=== PATIENT | male | born 1960 | race Caucasian/White ===

== ENCOUNTER 2016-05-28 09:52 | Emergency (ER) | payer MEDICAID ==
[~2016-05-28] VITALS: Ht 177.8 cm; Wt 105.9 kg
[~2016-05-28 09:52] MED LIST: AMIT10 PO; CYMB30CA PO; GLIP5 PO; JANU50TA9 PO; LYRI150C PO; METO50TA PO; PERC5TAB12 PO; PROT40TA PO; TRIA50 PO
[2016-05-28 09:59] VITALS: BP 143/79; PULSE 63; RESP 16; TEMP 98.5; O2SAT 99
[2016-05-28] MEDS ORDERED: MORPHINE SULFATE 8 MG/ML INJ IV PUSH ONE (10:30)
[2016-05-28] MEDS ORDERED: ONDANSETRON HCL 4 MG/2 ML VIAL IV PUSH ONE (10:30)
[2016-05-28] MEDS ORDERED: ACTO15TA11 PO (10:32)
[2016-05-28] MEDS ORDERED: TRIA1CAP PO (10:32)
[2016-05-28] MEDS ORDERED: AMIT25TA9 PO (10:32)
[2016-05-28] MEDS ORDERED: JANU50TA4 PO (10:32)
[2016-05-28] MEDS ORDERED: LYRI150C PO (10:32)
[2016-05-28] MEDS ORDERED: CYMB30CA PO (10:32)
[2016-05-28] MEDS ORDERED: LISI-515 PO (10:32)
[2016-05-28] MEDS ORDERED: METO-426 PO (10:32)
[2016-05-28] MEDS ORDERED: GLIP1TAB60 PO (10:32)
[2016-05-28] MEDS ORDERED: HYDR-3535 PO (10:32)
--- NOTE | 2016-05-28 10:33 | PD ---
HPI . Chest injury Chief Complaint: Injury Time Seen by Provider: 10:13 Travel History International Travel<30 days: No Contact w/Intl Traveler<30days: No Traveled to known affect area: No History of Present Illness HPI Patient presents for evaluation of a chest injury which occurred he fell through a roof onto a ladder. He states that the top rung of the ladder broke and his chest wall was injured by the metal frame of the ladder. He reports pain with breathing but is not really short of breath. He denies any other associated injuries. His tetanus is up-to-date. PFSH Past Medical History Hx Anticoagulant Therapy: No Arthritis: Yes Anxiety: Yes Depression: Yes Heart Rhythm Problems: No Cancer: No Cardiac Catheterization: No Cardiovascular Problems: Yes (htn on meds) High Cholesterol: Yes Chest Pain: Yes (ONCE IN A WHILE ) Congestive Heart Failure: No Cerebrovascular Accident: No Diabetes: Yes Patient Takes Glucophage: No Diminished Hearing: No Endocrine: Yes Gastrointestinal Disorders: Yes (OCCASIONAL CONSTIPATION LBM 6.21) GERD: No Genitourinary: No Headaches: No Hiatal Hernia: No Heparin Induced Thrombocytopen: No Hypertension: Yes Immune Disorder: No Implanted Vascular Access Dvce: No Kidney Stones: No Musculoskeletal: Yes (ARTHRITIS, CARPE TUNNEL) Neurologic: Yes (BLACKOUTS) Psychiatric: Yes Reproductive: No Respiratory: No Immunizations Current: Yes Migraines: No Renal Failure: No Seizures: Yes Sleep Apnea: No Ulcer: No Past Surgical History Abdominal Surgery: Yes (LIVER BIOPSY) Coronary Artery Bypass Graft: No Other Surgery: No Family History Family Myocardial Infarction: Yes (BOTH PARENTS) Social History Alcohol Use: Yes (6 pack daily) Tobacco Use: Yes (1ppd) Substance Use: Yes (MARIJUANA DAILY) Allergies-Medications (Allergen,Severity, Reaction): Coded Allergies: Tramadol (Verified Allergy, Severe, states sob, 05/28/16) Reported Meds & Prescriptions Reported Meds & Active Scripts Active Reported Lisinopril 20 Mg Tab 20 Mg PO DAILY Metoprolol Tartrate 75 Mg Tab 75 Mg PO BID Lortab (Hydrocodone-Acetaminophen) 10-325 Mg Tab 1 Tab PO Q4H PRN Triamterene-Hydrochlorothiazide 50-25 Mg Cap 1 Cap PO DAILY Lyrica (Pregabalin) 150 Mg Cap 150 Mg PO BID Amitriptyline (Amitriptyline HCl) 25 Mg Tab 25 Mg PO HS Cymbalta DR (Duloxetine HCl) 30 Mg Capdr 30 Mg PO DAILY Actos (Pioglitazone HCl) 15 Mg Tab 15 Mg PO DAILY Glipizide ER (Glipizide) 2.5 Mg Kylee 2.5 Mg PO DAILY Take with breakfast or first main meal of the day Janumet (Sitagliptin-Metformin) 50-500 Mg Tab 1 Tab PO BID Review of Systems Except as stated in HPI: all other systems reviewed are Neg Respiratory: Positive: Pleuritic Pain, No: Shortness of Breath Musculoskeletal: Positive: Myalgias Skin: Positive Other (abrasions to the lateral aspect of both sides of his chest wall.) Physical Exam Narrative GENERAL: This is a large man who appears to be in some pain. SKIN: Warm and dry. Several long abrasions to the lateral chest wall bilaterally. These abrasions are consistent with the history of injuring both sides of his chest wall on the metal frame of the broken ladder. HEAD: Atraumatic. Normocephalic. EYES: Pupils equal and round. ENT: No nasal bleeding or discharge. Mucous membranes pink and moist. NECK: Trachea midline. Neck has full range of motion without pain. CARDIOVASCULAR: Regular rate and rhythm. Heart sounds are normal. RESPIRATORY: No accessory muscle use. Breath sounds are full and equal. GASTROINTESTINAL: Abdomen soft, non-tender, nondistended. MUSCULOSKELETAL: No obvious deformities. No edema. NEUROLOGICAL: Awake and alert. No obvious cranial nerve deficits. Motor grossly within normal limits. Normal speech. PSYCHIATRIC: Appropriate mood and affect; insight and judgment normal. Data Data Last Documented VS Vital Signs Date Time Temp Pulse Resp B/P Pulse Ox O2 Delivery O2 Flow Rate FiO2 05/28/16 09:59 98.5 63 16 143/79 99 Orders Ribs, Uni (W/Exp Cxr-Min 3vw) (05/28/16 10:20) ^ Saline Lock (05/28/16 10:20) Morphine Inj (Morphine Inj) (05/28/16 10:30) Ondansetron Inj (Zofran Inj) (05/28/16 10:30) MDM Medical Decision Making Medical Screen Exam Complete: Yes Emergency Medical Condition: Yes Differential Diagnosis Differential diagnosis of chest trauma includes but is not limited to superficial abrasions/contusions, rib fracture, pneumothorax, hemothorax, pulmonary contusion, cardiac contusion, ruptured thoracic aorta. Narrative Course Patient presents for evaluation of blunt chest trauma. I have ordered pain medication and plain films. X-rays show fractures of the left posterior fifth and sixth ribs. No pneumothorax. These films were independently viewed by me. Diagnosis Primary Impression: Left rib fracture Qualified Code: S22.42XA - Closed fracture of multiple ribs of left side, initial encounter Additional Impressions: Chest trauma Qualified Code: S29.9XXA - Chest trauma, initial encounter Abrasion of chest wall Qualified Code: S20.319A - Abrasion of chest wall, unspecified laterality, initial encounter Patient Instructions: General Instructions, Rib Fracture (ED) Additional Instructions: Ice packs may help relieve your pain. Return for increased difficulty breathing. Med/Other Pt SpecificInfo: Prescription(s) given Scripts Oxycodone-Acetaminophen (Percocet)10-325 mg Tab1 Tab PO Q4H PRN (PAIN) #12 TAB Ref 0 Prov:Gaye Church MD 05/28/16 Disposition: 01 DISCHARGE HOME Condition: Stable Gaye Church MD May 28, 2016 10:33
--- NOTE | 2016-05-28 11:08 | RADHPO ---
EXAM DATE/TIME: 05/28/2016 10:38 [facility] COMPARISON: No previous studies available for comparison. INDICATIONS : Left side rib pain, fall off roof today. MEDICAL HISTORY : None. SURGICAL HISTORY : None. ENCOUNTER: Initial ACUITY: 1 day PAIN SCORE: 10/10 LOCATION: Left lateral ribs FINDINGS: Expiratory view of the chest demonstrates no pneumothorax. There are fractures of the left posterior lateral fifth and sixth ribs. Based on the appearance these could be acute or chronic. No other rib f racture is seen. The visualized surrounding structures demonstrate no acute finding. CONCLUSION: There are left posterior lateral fifth and sixth rib fractures. Based on appearance these could be ac [place] or chronic. Suggest correlation for pain at this site. No pneumothorax is visualized. Jose Alfredo Parker MD on May 28, 2016 at 11:03 Board Certified Radiologist. This report was verified electronically.
[2016-05-28] MEDS ORDERED: PERC10TA27 PO (11:19)
[2016-05-28 11:42] VITALS: BP 123/76; PULSE 62; RESP 18; O2SAT 94
== END 2016-05-28 12:24 | disposition home or self-care (01) ==
LOC: PHED 09:52
DX: S22.32XA Fracture of one rib, left side, initial encounter for closed fracture (principal); I10 Essential (primary) hypertension; E11.9 Type 2 diabetes mellitus without complications; E78.00 Pure hypercholesterolemia, unspecified; Z79.4 Long term (current) use of insulin; F17.210 Nicotine dependence, cigarettes, uncomplicated; W11.XXXA Fall on and from ladder, initial encounter; Y93.89 Activity, other specified; Y92.89 Other specified places as the place of occurrence of the external cause; Y99.8 Other external cause status
CPT/HCPCS: 71101; 94150; 96374; 96375; 99284; J2270; J2405